=== PATIENT | male | born 1970 | race Caucasian/White ===

== ENCOUNTER → 2017-07-03 | Outpatient (CLI) | payer OTHER | LOC: CFH 08:15 | PROVIDERS: ATTEND Orthopaedic Surgery Foot and Ankle Surgery | DX: M76.62 Achilles tendinitis, left leg (principal) ==

== ENCOUNTER 2020-12-28 05:43 | Day surgery (SDC) | payer OTHER ==
[2020-12-26 08:20] LABS: ALANINE AMINOTRANSFERASE 78 U/L (12-78); ALBUMIN 3.8 g/dL (3.4-5.0); ANION GAP 5 mmol/L (5-15); CALCIUM 8.9 mg/dL (8.5-10.1); CHLORIDE 108 mmol/L (98-107); CREATININE 1.17 mg/dL (0.7-1.3)
[2020-12-26 08:22] LABS: ALKALINE PHOSPHATASE 46 U/L (45-117); BILIRUBIN,TOTAL 0.7 mg/dL (0.2-1.0); TOTAL PROTEIN 7.5 g/dL (6.4-8.2)
[~2020-12-28] VITALS: Ht 165.1 cm; Wt 112.2 kg
[~2020-12-28 05:43] MED LIST: ALBU8.5H8 INH; LISI-167 PO
[2020-12-28] MEDS ORDERED: EPINEPHRINE 1 MG/ML, 1ML ONE (05:50)
[2020-12-28] MEDS ORDERED: BUPIVACAINE/PF 0.25% ONE (05:50)
[2020-12-28 06:17] VITALS: BP 156/95
[2020-12-28] MEDS ORDERED: FENTANYL PF 100 MCG/2ML ONE (06:17)
[2020-12-28] MEDS ORDERED: MIDAZOLAM 1 MG/ML, 2ML ONE (06:17)
[2020-12-28] MEDS ORDERED: LACTATED RINGERS 1,000 ML IV SCH (06:30)
[2020-12-28] MEDS ORDERED: CHLORHEXIDINE 15 ML UDC PO ONE (06:30)
[2020-12-28] MEDS ORDERED: ACETAMINOPHEN 325 MG TABLET PO PRN (08:00)
[2020-12-28] MEDS ORDERED: PROMETHAZINE 25 MG/ML, 1ML IV PRN (08:00)
[2020-12-28] MEDS ORDERED: OXYcodone 5 MG/5 ML ORAL.SOL UDC PO PRN (08:00)
[2020-12-28] MEDS ORDERED: FENTANYL PF 100 MCG/2ML IV PRN (08:00)
[2020-12-28] MEDS ORDERED: KETOROLAC 30 MG/1 ML IV PRN (08:00)
[2020-12-28] MEDS ORDERED: LABETALOL 5MG/ML, 20ML IV PRN (08:00)
[2020-12-28] MEDS ORDERED: DIAZEPAM 5 MG/ML, 2ML IVPush PRN (08:00)
[2020-12-28] MEDS ORDERED: HYDROmorphone 2 MG/ML, 1ML IVPush PRN (08:00)
[2020-12-28] MEDS ORDERED: hydrALAzine 20 MG/ML, 1ML IV PRN (08:00)
[2020-12-28] MEDS ORDERED: ALBUTEROL SULFATE 2.5 MG/3 ML NPPB PRN (08:00)
[2020-12-28] MEDS ORDERED: MEPERIDINE/PF 25MG/0.5ML IVPush PRN (08:00)
[2020-12-28] MEDS ORDERED: CEFAZOLIN 1,000 MG ONE (08:10)
[2020-12-28] MEDS ORDERED: DEXAMETHASONE 4 MG/ML, 1ML ONE (08:10)
[2020-12-28] MEDS ORDERED: GLYCOPYRROLATE 0.2MG/1ML, 5ML ONE (08:10)
[2020-12-28] MEDS ORDERED: ROCURONIUM 10MG/ML,5ML ONE (08:10)
[2020-12-28] MEDS ORDERED: PROPOFOL 10 MG/ML, 20ML ONE (08:10)
[2020-12-28] MEDS ORDERED: SUCCINYLCHOLINE 20 MG/ML, 10ML ONE (08:10)
[2020-12-28] MEDS ORDERED: NEOSTIGMINE 1 MG/ML, 10ML ONE (08:10)
[2020-12-28] MEDS ORDERED: ONDANSETRON 2MG/ML, 2ML ONE (08:10)
== END 2020-12-28 10:10 | disposition home or self-care (01) ==
LOC: OUT 05:43
PROVIDERS: ATTEND Orthopaedic Surgery
DX: S46.012A Strain of muscle(s) and tendon(s) of the rotator cuff of left shoulder, initial encounter (principal); S43.432A Superior glenoid labrum lesion of left shoulder, initial encounter; M75.42 Impingement syndrome of left shoulder; M94.212 Chondromalacia, left shoulder; M19.012 Primary osteoarthritis, left shoulder; I10 Essential (primary) hypertension; Z20.822 Contact with and (suspected) exposure to COVID-19; Z79.899 Other long term (current) drug therapy; Z98.890 Other specified postprocedural states; X58.XXXA Exposure to other specified factors, initial encounter; Y93.89 Activity, other specified; Y92.89 Other specified places as the place of occurrence of the external cause; Y99.8 Other external cause status
CPT/HCPCS: 29823; 29826; 29827; 36415; 64415; 80053; C1713; J0171; J0330; J0690; J1100; J2250; J2405; J2704; J2710; J3010; J7120; U0003; U0005